=== PATIENT | male | born 1930 | race Hispanic/Latino ===

== ENCOUNTER 2017-11-01 03:15 | Inpatient (IN) | payer MEDICARE, MEDICAID ==
[2017-11-01 04:01] LABS: PTT 31.6 SEC (22.9-36.1); Prothrombin Time 15.9 SEC (12.0-14.7)
[2017-11-01 04:07] LABS: Lactic Acid - Sepsis 2.2 mmol/L (0.5-2.2)
[2017-11-01 04:15] LABS: ALT (SGPT) 17 U/L (8-55); AST (SGOT) 21 U/L (5-34); Alkaline Phosphatase 64 U/L (40-150); Anion Gap 12 mmol/L (10-20); BUN (Urea Nitrogen) 19 mg/dL (8.4-25.7); Bilirubin, Total 0.5 mg/dL (0.2-1.2); CK (CPK) 149 U/L (30-200); Calc. Creatinine Clearance 0 mL/min (70-130); Calcium 8.5 mg/dL (7.8-10.44); Carbon Dioxide 28 mmol/L (23-31); Chloride 101 mmol/L (98-107); Estimated GFR-MDRD 78; Globulin 2.9 g/dL (2.4-3.5); Lipase 10 U/L (8-78); Protein, Total 7.1 g/dL (5.8-8.1)
[2017-11-01 04:16] LABS: Troponin I Less than 0.010 ng/mL (< 0.028)
[2017-11-01 04:20] LABS: Band 18 % (5-11); Hematocrit 42.6 % (42.0-52.0); Mean Platelet Volume 9.7 fL (7.4-10.4); Metamyelocyte 1 % (0-0); Neutrophil 71 % (42-75); Red Blood Cell (RBC) Count 4.96 mill/uL (4.70-6.10); White Blood Cell (WBC) Count 20.4 thou/uL (4.8-10.8)
[2017-11-01] MEDS ORDERED: Oseltamivir 75 MG CAP PO SCH (04:30)
[2017-11-01] MEDS ORDERED: HYDROcodone/Acetaminophen 5/325 mg Tablet PO PRN (07:13)
[2017-11-01] MEDS ORDERED: Loratadine 10 MG TAB PO PRN (07:13)
[2017-11-01] MEDS ORDERED: Benzonatate 100 MG CAP PO PRN (07:13)
[2017-11-01] MEDS ORDERED: Milk Of Magnesia 30 ML UDCUP PO PRN (07:13)
[2017-11-01] MEDS ORDERED: Ondansetron HCl/PF 4 MG/2 ML Vial IVP PRN (07:13)
[2017-11-01] MEDS ORDERED: Senokot 8.6 MG TAB PO PRN (07:13)
[2017-11-01] MEDS ORDERED: Ondansetron ODT 4 MG TAB PO PRN (07:13)
[2017-11-01] MEDS ORDERED: hydrALAZINE 20 MG/ML VIAL SLOW IVP PRN (07:13)
[2017-11-01] MEDS ORDERED: Eucerin (Mineral Oil/Petrolatum,White) 30 gm Jar TOP PRN (07:13)
[2017-11-01] MEDS ORDERED: Loperamide HCl 2 MG CAP PO PRN (07:13)
[2017-11-01] MEDS ORDERED: Acetaminophen 325 MG TAB PO PRN (07:13)
[2017-11-01] MEDS ORDERED: Sodium Chloride 0.65% Nasal 44 ML BOT EA NARE PRN (07:13)
[2017-11-01] MEDS ORDERED: Artificial Tears 18 DROP/0.9 ML EA EYE PRN (07:13)
[2017-11-01] MEDS ORDERED: Mag-Al 1200 mg/1200 mg/30 ML UDCUP PO PRN (07:13)
[2017-11-01] MEDS ORDERED: Chloraseptic Spray 180 ml Bottle PO PRN (07:13)
[2017-11-01] MEDS ORDERED: cefTRIAXone\\ROCEPHIN 2 GM in Sodium Chloride 0.9% 100 ML IVPB SCH (07:15)
--- NOTE | 2017-11-01 07:22 | RAD ---
CHEST 1 VIEW: Date: 11/01/17 HISTORY: Dyspnea. COMPARISON: 08/31/16. FINDINGS: Normal cardiac silhouette. Atherosclerosis of aorta. Pulmonary vessels are within normal limits. Ther e are increased interstitial opacities in lung bases, superimposed upon chronic change. Given diminis hed lung volumes, bibasilar atelectasis is favored. Infiltrate cannot be completely excluded. No sign ificant pleural effusion. No pneumothorax. IMPRESSION: Interstitial opacities in lung bases as detailed above. Atelectasis is favored. Infiltrate cannot be excluded. POS: PPP
[2017-11-01] MEDS ORDERED: Enoxaparin Sodium 40 MG/0.4 ML SYRINGE SC SCH (09:00)
[2017-11-01] MEDS ORDERED: Famotidine 20 MG TAB ONE (12:00)
[2017-11-01 13:30] LABS: Bilirubin Negative (Negative); Blood, Urine Negative (Negative); Glucose, Urine (Dipstick) Negative (Negative); Ketone, Urine Negative (Negative); Nitrite Negative (Negative); Protein, Urine (Dipstick) 30 mg/dL (Neg-Trace); Urobilinogen 0.2 mg/dL (0.2-1.0)
[2017-11-01 13:32] LABS: Bacteria/HPF None Seen HPF (None Seen); Hyaline Casts/LPF 0-3 HYALINE CAST LPF (0-3 Hyaline); RBC/HPF 0-3 HPF (0-3); Squamous Epithelial 0-3 HPF (0-3); WBC/HPF 0-3 HPF (0-3)
--- NOTE | 2017-11-01 13:42 | HP ---
PRIMARY CARE PHYSICIAN: Adrianna Bah M.D. CHIEF COMPLAINT: Acute hypoxic respiratory failure influenza A, sepsis with acute organ dysfunction. HISTORY OF PRESENT ILLNESS: An 87-year-old male who is Bangladeshi speaking only, so he is not able to provide a good history, but patient's family member present at bedside who provided most of the history. Patient is sick for the last 2 days. His symptoms started with upper respiratory infection. Initially, runny nose and sore throat, and he was having headache, body ache and generalized weakness. He started having cough with sputum. He was becoming more and more weak and his condition deteriorated last night and that is why family member brought him to the emergency room. When he came to the emergency room, his oxygen saturation was 84% on room air and he was febrile with temperature 100.4. He was tachypneic and relatively hypotensive. Patient was having cough and sore throat. He did not have any recent travel. He did not have any syncope, but he was having cough and associated pleuritic chest pain. Patient denies any UTI symptoms. He denies any nausea, vomiting, or diarrhea. He denies any constipation, diarrhea, melena, hematochezia. REVIEW OF SYSTEMS: The following complete review of systems was negative, unless otherwise mentioned in the HPI or below: Constitutional: Weight loss or gain, ability to conduct usual activities. Skin: Rash, itching. Eyes: Double vision, pain. ENT/Mouth: Nose bleeding, neck stiffness, pain, tenderness. Cardiovascular: Palpitations, dyspnea on exertion, orthopnea. Respiratory: Shortness of breath, wheezing, cough, hemoptysis, fever or night sweats. Gastrointestinal: Poor appetite, abdominal pain, heartburn, nausea, vomiting, constipation, or diarrhea. Genitourinary: Urgency, frequency, dysuria, nocturia. Musculoskeletal: Pain, swelling. Neurologic/Psychiatric: Anxiety, depression. Allergy/Immunologic: Skin rash, bleeding tendency. Please see my HPI for pertinent positives and negatives. All other review of systems reviewed and negative except as mentioned in the HPI. CURRENT HOME MEDICATIONS: Lasix 20 mg twice daily, terazosin 2 mg p.o. at bedtime, Lyrica 50 mg 3 times daily, and amlodipine 10 mg p.o. daily. PAST MEDICAL HISTORY: Osteoarthritis, chronic low back pain, hypertension, benign enlargement of prostate. PAST SURGICAL HISTORY: Back surgery. ALLERGIES: No known drug allergies. FAMILY HISTORY: Hypertension runs among several family members. SOCIAL HISTORY: Patient lives in [facility] area with the family. No history of tobacco, alcohol or illicit drug abuse. Patient is able to ambulate with a cane and he is able to do all his routine activity. PAST PSYCHIATRIC HISTORY: Reviewed and negative. EMERGENCY ROOM COURSE: Patient is given Tamiflu 30 mg, Pepcid 20 mg, Rocephin 2 grams, IV fluid 2 liters and Levaquin 750 mg. PHYSICAL EXAMINATION: VITAL SIGNS: On arrival, blood pressure 104/51, pulse 67, respiratory rate 18, temperature 100.4, saturation 84% on room air, weight 63.5 kilograms. GENERAL: Patient is currently alert, awake, appears weak. No obvious acute distress. HEAD: Normocephalic, atraumatic. EYES: Pupils round, reactive to light. Extraocular muscles intact. ENT: Oropharynx within normal limits. Moist mucous membranes. No oral lesions. No pharyngeal erythema, no exudate. NECK: Supple, no JVD, no thyromegaly, no carotid bruit. ENT: Oropharynx within normal limits. Pharyngeal erythema noted. No exudate. CARDIOVASCULAR: S1, S2 regular. No murmur, no gallop, no rub. LUNGS: Bilateral wheezing heard. Rales present at left lower lobe. ABDOMEN: Soft, bowel sounds present, nontender, nondistended. No organomegaly , no mass, no suprapubic tenderness. BACK: Examination unremarkable, no CVA tenderness. EXTREMITIES: Upper extremity passive movements of all joints are normal. Lower extremities: No edema. Good peripheral pulsation. SKIN: No skin rash. HEMATOLOGICAL SYSTEM: No lymphadenopathy. PSYCHIATRIC: Normal affect. NEUROLOGIC: Nonfocal examination. The patient moves all 4 limbs. Plantar bilateral flexor. IMAGING AND SIGNIFICANT LABORATORY DATA: 1. EKG based on my review reveals normal sinus rhythm, normal EKG without any ischemic changes. 2. Chest x-ray based on my review, interstitial opacity at lung base. 3. CBC: WBC 20.4, hemoglobin 14.3, platelets 79 with bandemia. INR 1.2. 4. BMP: Sodium 134, potassium 3.4, chloride 101, carbon dioxide 28, BUN 19, creatinine 0.92, glucose 113, calcium 8.5. 5. LFT: AST 21, ALT 17, alkaline phosphatase 64, albumin 4.2, CK 149, CK-MB 1.24, troponin I less than 0.010, BNP 121.6, lactic acid 2.2, lipase 10. ASSESSMENT AND PLAN/IMPRESSION: 1. Sepsis with acute organ dysfunction. This patient has leukocytosis with bandemia, fever as well as hypoxic respiratory failure. Source of infection is a flu related pneumonia/bronchitis. 2. Hypokalemia. Patient will be given IV fluid with potassium and we will repeat BMP tomorrow. 3. Thrombocytopenia. Because of low platelet count, we will avoid deep venous thrombosis prophylaxis with heparin product. 4. Influenza day. Patient has influenza A positive and we will treat with Tamiflu as per renally adjusted dose. 5. Bibasilar pneumonia with hypoxia. Patient will be given Rocephin 2 gram IV daily, Levaquin 750 mg IV daily along with Mucinex 600 mg twice daily, doxycycline 100 mg twice daily, DuoNeb q.6 hourly and Solu-Medrol 40 mg IV q.6 hourly. 6. Benign enlargement of prostate. We will continue terazosin 2 mg p.o. at bedtime. 7. Peripheral neuropathy. We will continue Lyrica 50 mg twice daily. 8. Hypertension. Currently, blood pressure is running low, so we will hold on antihypertensive medication. 9. Deep venous thrombosis prophylaxis, sequential compression device boots. No Lovenox because of low platelet count. 10. Gastrointestinal prophylaxis, Pepcid 20 mg p.o. b.i.d. 11. Code status: The patient is FULL CODE. Patient does not have any obvious surrogate decision maker. Disposition plan based on clinical course. We are expecting patient's stay in hospital more than 2 midnights. Plan of care discussed with the patient and family member at bedside in the emergency room. LYNNED
[2017-11-01 14:49] VITALS: BMI 30.7
[2017-11-01] MEDS: cefTRIAXone\\ROCEPHIN 2 GM in Sodium Chloride 0.9% 100 ML IVPB SCH (14:53)
[2017-11-01] MEDS: Famotidine 20 MG TAB PO SCH ×2 (14:53→21:53)
[2017-11-01] MEDS: guaiFENesin ER 600 MG TAB PO SCH ×2 (14:55→21:55)
[2017-11-01] MEDS: Diabetic Tussin 200 MG/10 ML UDCUP PO PRN (15:42)
[2017-11-01] MEDS: NS 0.9% w/ 20 MEQ KCL 1,000 ML/1,000 ML BAG IV SCH (17:57)
[2017-11-01] MEDS: Oseltamivir 6 MG/ML ORAL SUSP PO SCH (21:51)
[2017-11-01] MEDS: Pregabalin 50 MG CAP PO SCH (21:51)
[2017-11-01] MEDS: Terazosin HCl 1 MG CAP PO SCH (21:53)
[2017-11-01] MEDS: Doxycycline 100 MG CAP PO SCH (21:57)
[2017-11-02 06:37] LABS: #Lymphocytes 0.4 thou/uL (1.20-3.40); #Monocytes 0.3 thou/uL (0.11-0.59); #Neutrophils 14.9 thou/uL (1.40-6.50); %Eosinophils 0.1 % (0.0-10.0); %Lymphocytes 2.8 % (21.0-51.0); %Monocytes 1.8 % (0.0-10.0); Hematocrit 39.7 % (42.0-52.0); Mean Platelet Volume 10.1 fL (7.4-10.4); Red Blood Cell (RBC) Count 4.58 mill/uL (4.70-6.10); White Blood Cell (WBC) Count 15.6 thou/uL (4.8-10.8)
[2017-11-02 06:59] LABS: ALT (SGPT) 14 U/L (8-55); AST (SGOT) 23 U/L (5-34); Alkaline Phosphatase 50 U/L (40-150); Anion Gap 13 mmol/L (10-20); BUN (Urea Nitrogen) 12 mg/dL (8.4-25.7); Bilirubin, Total 0.3 mg/dL (0.2-1.2); Calc. Creatinine Clearance 67 mL/min (70-130); Carbon Dioxide 25 mmol/L (23-31); Chloride 105 mmol/L (98-107); Estimated GFR-MDRD Greater than 90; Globulin 2.7 g/dL (2.4-3.5); Protein, Total 6.3 g/dL (5.8-8.1)
[2017-11-02] MEDS: Pregabalin 50 MG CAP PO SCH ×2 (09:15→20:55)
[2017-11-02] MEDS: guaiFENesin ER 600 MG TAB PO SCH ×2 (09:15→20:55)
[2017-11-02] MEDS: Famotidine 20 MG TAB PO SCH ×2 (09:15→20:56)
[2017-11-02] MEDS: Oseltamivir 6 MG/ML ORAL SUSP PO SCH ×2 (09:16→20:55)
[2017-11-02] MEDS: Doxycycline 100 MG CAP PO SCH ×2 (09:16→20:55)
[2017-11-02] MEDS: cefTRIAXone\\ROCEPHIN 2 GM in Sodium Chloride 0.9% 100 ML IVPB SCH (09:16)
[2017-11-02] MEDS: NS 0.9% w/ 20 MEQ KCL 1,000 ML/1,000 ML BAG IV SCH ×2 (10:00→16:54)
--- NOTE | 2017-11-02 12:26 | PDOC.PN ---
- Subjective Encounter Start Date: 11/02/17 Encounter Start Time: 09:50 -: old records requested/rev pt has sore throat, feels weak, has cough, no fever, feels better than yesterday - Objective Resuscitation Status: Resuscitation Status FULL:Full Resuscitation MAR Reviewed: Yes Vital Signs & Weight: Vital Signs (12 hours) Temp Pulse Resp BP Pulse Ox 11/02/17 11:46 98 F 83 20 117/53 L 91 L 11/02/17 09:26 92 L 11/02/17 09:20 89 L 11/02/17 08:30 101 H 127/62 11/02/17 08:00 97.6 F 101 H 18 88/57 L 92 L 11/02/17 06:08 74 20 93 L 11/02/17 04:20 99 F 73 20 112/66 93 L 11/02/17 00:55 99.4 F 100 16 106/59 L 92 L Weight Weight 153 lb 11.2 oz I&O: 11/01/17 11/02/17 11/03/17 06:59 06:59 06:59 Intake Total 240 Output Total 400 Balance -160 Result Diagrams: 11/02/17 06:13 11/02/17 06:13 EKG Reviewed by me: Yes (nsr) Phys Exam - Physical Examination Constitutional: NAD HEENT: PERRLA, moist MMs, sclera anicteric Neck: no JVD, supple Respiratory: no wheezing, no rales, no rhonchi basilar reduced air entry Cardiovascular: RRR, no significant murmur, no rub Gastrointestinal: soft, non-tender, no distention, positive bowel sounds Musculoskeletal: no edema, pulses present Neurological: non-focal, normal sensation, moves all 4 limbs Lymphatic: no nodes Psychiatric: normal affect, A&O x 3 Skin: no rash, normal turgor Dx/Plan (1) Acute respiratory failure with hypoxia Code(s): J96.01 - ACUTE RESPIRATORY FAILURE WITH HYPOXIA Status: Acute (2) Community acquired bacterial pneumonia Code(s): J15.9 - UNSPECIFIED BACTERIAL PNEUMONIA Status: Acute (3) Hypokalemia Code(s): E87.6 - HYPOKALEMIA Status: Acute (4) Influenza A Code(s): J10.1 - FLU DUE TO OTH IDENT INFLUENZA VIRUS W OTH RESP MANIFEST Status: Acute (5) Sepsis with acute organ dysfunction Code(s): A41.9 - SEPSIS, UNSPECIFIED ORGANISM; R65.20 - SEVERE SEPSIS WITHOUT SEPTIC SHOCK Status: Acute (6) Thrombocytopenia Code(s): D69.6 - THROMBOCYTOPENIA, UNSPECIFIED Status: Acute (7) BPH (benign prostatic hyperplasia) Code(s): N40.0 - BENIGN PROSTATIC HYPERPLASIA WITHOUT LOWER URINRY TRACT SYMP Status: Chronic (8) HTN (hypertension) Code(s): I10 - ESSENTIAL (PRIMARY) HYPERTENSION Status: Chronic (9) Obesity (BMI 30.0-34.9) Code(s): E66.9 - OBESITY, UNSPECIFIED Status: Chronic - Plan cont current plan of care, plan discussed w/ family, continue antibiotics, respiratory therapy, DVT proph w/SCDs * continue tamiflu * continue rocephin, levaquin and doxycycline * reduce solumedrol * Dc tele * transfer to medical * will wean off oxygen as tolerated * follow culture * medication reviewed as below * symptomatic treatment * discussed with family. Review of Systems - Review of Systems Constitutional: weakness. negative: fever, chills, sweats, malaise, other ENT: Throat Pain. negative: Ear Pain, Ear Discharge, Nose Pain, Nose Discharge , Nose Congestion, Mouth Pain, Mouth Swelling, Throat Swelling, Other Respiratory: Cough, Shortness of Breath Cardiovascular: negative: chest pain, palpitations, orthopnea, paroxysmal nocturnal dyspnea, edema, light headedness, other Gastrointestinal: negative: Nausea, Vomiting, Abdominal Pain, Diarrhea, Constipation, Melena, Hematochezia, Other Genitourinary: negative: Dysuria, Frequency, Incontinence, Hematuria, Retention , Other Musculoskeletal: negative: Neck Pain, Shoulder Pain, Arm Pain, Back Pain, Hand Pain, Leg Pain, Foot Pain, Other Skin: negative: Rash, Lesions, [place], Bruising, Other - Medications/Allergies Allergies/Adverse Reactions: Allergies Allergy/AdvReac Type Severity Reaction Status Date / Time No Known Allergies Allergy Verified 10/03/15 14:26 Medications: Current Medications Acetaminophen (Tylenol) 650 mg PO Q4H PRN PRN Reason: Headache/Fever or Pain Hydrocodone Bitart/Acetaminophen ([place] 5/325) 1 tab PO Q4H PRN PRN Reason: Moderate Pain (4-6) Al Hydroxide/Mg Hydroxide (Maalox) 30 ml PO Q6H PRN PRN Reason: Heartburn or Indigestion Albuterol/Ipratropium (Duoneb) 3 ml NEB [id number] [facility] Last Admin: 11/02/17 06:08 Dose: 3 ml Albuterol/Ipratropium (Duoneb) 3 ml NEB [id number] PRN PRN Reason: SOB &/or Wheezing Artificial Tears (Tears Naturale) 0 drop EA EYE PRN PRN PRN Reason: Dry Eyes Benzonatate (Tessalon) 100 mg PO Q4H PRN PRN Reason: Cough Doxycycline Hyclate (Vibramycin) 100 mg PO BID [facility] Last Admin: 11/02/17 09:16 Dose: 100 mg Famotidine (Pepcid) 20 mg PO BID [facility] Last Admin: 11/02/17 09:15 Dose: 20 mg Guaifenesin (Robitussin Sf) 200 mg PO Q4H PRN PRN Reason: Cough Last Admin: 11/01/17 15:42 Dose: 200 mg Guaifenesin (Mucinex) 600 mg PO Q12HR [facility] Last Admin: 11/02/17 09:15 Dose: 600 mg Hydralazine HCl (Apresoline) 10 mg SLOW IVP Q4H PRN PRN Reason: Systolic BP > 180 Levofloxacin 750 mg/ Device 150 mls @ 100 mls/hr IVPB 0400 [facility] Last Admin: 11/02/17 04:49 Dose: 150 mls Ceftriaxone Sodium 2 gm/ (Sodium Chloride) 100 mls @ 200 mls/hr IVPB 0800 [facility] Last Admin: 11/02/17 09:16 Dose: 100 mls Potassium Chloride/Sodium Chloride (Ns 0.9% W/ 20 Meq Kcl) 1,000 ml in 1,000 mls @ 75 mls/hr IV .[id number] [facility] Last Admin: 11/02/17 10:00 Dose: 1,000 mls Loperamide HCl (Imodium) 2 mg PO PRN PRN PRN Reason: Diarrhea/Loose Stools Loratadine (Claritin) 10 mg PO DAILYPRN PRN PRN Reason: Sinus Symptoms Magnesium Hydroxide (Milk Of Magnesium) 30 ml PO DAILYPRN PRN PRN Reason: Constipation Methylprednisolone Sodium Succinate (Solu-Medrol) 20 mg IVP Q6HR [facility] Last Admin: 11/02/17 11:51 Dose: 20 mg Mineral Oil/White Petrolatum (Eucerin Cream) 0 gm TOP BIDPRN PRN PRN Reason: Dry Skin Ondansetron HCl (Zofran Odt) 4 mg PO Q6H PRN PRN Reason: Nausea/Vomiting Ondansetron HCl (Zofran) 4 mg IVP Q6H PRN PRN Reason: Nausea/Vomiting Oseltamivir Phosphate (Tamiflu) 30 mg PO BID [facility] Stop: 11/06/17 09:01 Last Admin: 11/02/17 09:16 Dose: 30 mg Phenol (Chloraseptic [place] 180 Ml Bot) 0 ml PO PRN PRN PRN Reason: Sore Throat Pregabalin (Lyrica) 50 mg PO BID [facility] Last Admin: 11/02/17 09:15 Dose: 50 mg Senna (Senokot) 2 tab PO HSPRN PRN PRN Reason: Constipation Sodium Chloride ([place] Nasal [place] 0.65%) 0 ml EA NARE QIDPRN PRN PRN Reason: Nasal Congestion Sodium Chloride (Flush - Normal Saline) 10 ml IVF Q12HR [facility] Last Admin: 11/02/17 09:17 Dose: 10 ml Sodium Chloride (Flush - Normal Saline) 10 ml IVF PRN PRN PRN Reason: Saline Flush Terazosin HCl (Hytrin) 2 mg PO HS [facility] Last Admin: 11/01/17 21:53 Dose: 2 mg
[2017-11-02] MEDS: Terazosin HCl 1 MG CAP PO SCH (20:56)
[2017-11-03] MEDS: NS 0.9% w/ 20 MEQ KCL 1,000 ML/1,000 ML BAG IV SCH ×2 (00:24→16:36)
[2017-11-03] MEDS: Doxycycline 100 MG CAP PO SCH ×2 (08:50→20:18)
[2017-11-03] MEDS: Famotidine 20 MG TAB PO SCH ×2 (08:51→20:18)
[2017-11-03] MEDS: guaiFENesin ER 600 MG TAB PO SCH ×2 (08:51→20:18)
[2017-11-03] MEDS: Oseltamivir 6 MG/ML ORAL SUSP PO SCH ×2 (08:51→20:19)
[2017-11-03] MEDS: Pregabalin 50 MG CAP PO SCH ×2 (08:51→20:18)
[2017-11-03] MEDS: cefTRIAXone\\ROCEPHIN 2 GM in Sodium Chloride 0.9% 100 ML IVPB SCH (09:47)
--- NOTE | 2017-11-03 11:59 | PDOC.PN ---
- Subjective Encounter Start Date: 11/03/17 Encounter Start Time: 09:30 pt has cough, pt is still hypoxic and needs oxygen, no fever - Objective Resuscitation Status: Resuscitation Status FULL:Full Resuscitation MAR Reviewed: Yes Vital Signs & Weight: Vital Signs (12 hours) Temp Pulse Resp BP BP Pulse Ox 11/03/17 11:52 81 18 93 L 11/03/17 08:50 98.0 F 77 20 91 L 11/03/17 08:24 98.0 F 77 20 141/72 H 89 L 11/03/17 06:45 85 18 96 11/03/17 04:00 98.1 F 73 20 138/71 93 L 11/03/17 01:50 75 18 96 11/03/17 00:00 98.0 F 73 20 126/66 94 L Weight Weight 153 lb 11.2 oz I&O: 11/02/17 11/03/17 11/04/17 06:59 06:59 06:59 Intake Total 2364 Output Total 400 Balance 1964 Result Diagrams: 11/02/17 06:13 11/02/17 06:13 Phys Exam - Physical Examination Constitutional: NAD HEENT: PERRLA, moist MMs, sclera anicteric Neck: no JVD, supple Respiratory: no wheezing, no rales, no rhonchi Cardiovascular: RRR, no significant murmur, no rub Gastrointestinal: soft, non-tender, no distention, positive bowel sounds Musculoskeletal: no edema, pulses present Neurological: non-focal, normal sensation, moves all 4 limbs Lymphatic: no nodes Psychiatric: normal affect, A&O x 3 Skin: no rash, normal turgor Dx/Plan (1) Acute respiratory failure with hypoxia Code(s): J96.01 - ACUTE RESPIRATORY FAILURE WITH HYPOXIA Status: Acute (2) Community acquired bacterial pneumonia Code(s): J15.9 - UNSPECIFIED BACTERIAL PNEUMONIA Status: Acute (3) Hypokalemia Code(s): E87.6 - HYPOKALEMIA Status: Acute (4) Influenza A Code(s): J10.1 - FLU DUE TO OTH IDENT INFLUENZA VIRUS W OTH RESP MANIFEST Status: Acute (5) Sepsis with acute organ dysfunction Code(s): A41.9 - SEPSIS, UNSPECIFIED ORGANISM; R65.20 - SEVERE SEPSIS WITHOUT SEPTIC SHOCK Status: Acute (6) Thrombocytopenia Code(s): D69.6 - THROMBOCYTOPENIA, UNSPECIFIED Status: Acute (7) BPH (benign prostatic hyperplasia) Code(s): N40.0 - BENIGN PROSTATIC HYPERPLASIA WITHOUT LOWER URINRY TRACT SYMP Status: Chronic (8) HTN (hypertension) Code(s): I10 - ESSENTIAL (PRIMARY) HYPERTENSION Status: Chronic (9) Obesity (BMI 30.0-34.9) Code(s): E66.9 - OBESITY, UNSPECIFIED Status: Chronic - Plan cont current plan of care, plan discussed w/ family, continue antibiotics, respiratory therapy * today i spoke with patient and family with help of nurse who speaks italian and explained what is going on * when we walked around unit without oxygen, he became hypoxic and requiring oxygen * will continue to monitor his needs for oxygen * continue current IV antibiotics and tamilu * today he is not ready for discharge * will reevaluate tomorrow * medication reviewed as below * symptomatic treatment * discussed with family. Review of Systems - Review of Systems Constitutional: weakness. negative: fever, chills, sweats, malaise, other Eyes: negative: Pain, Vision Change, Conjunctivae Inflammation, Eyelid Inflammation, Redness, Other ENT: negative: Ear Pain, Ear Discharge, Nose Pain, Nose Discharge, Nose Congestion, Mouth Pain, Mouth Swelling, Throat Pain, Throat Swelling, Other Respiratory: Cough, Shortness of Breath. negative: Dry, Hemoptysis, SOB with Excertion, Pleuritic Pain, Sputum, Wheezing Cardiovascular: negative: chest pain, palpitations, orthopnea, paroxysmal nocturnal dyspnea, edema, light headedness, other Gastrointestinal: negative: Nausea, Vomiting, Abdominal Pain, Diarrhea, Constipation, Melena, Hematochezia, Other Genitourinary: negative: Dysuria, Frequency, Incontinence, Hematuria, Retention , Other Musculoskeletal: negative: Neck Pain, Shoulder Pain, Arm Pain, Back Pain, Hand Pain, Leg Pain, Foot Pain, Other Skin: negative: Rash, Lesions, [place], Bruising, Other - Medications/Allergies Allergies/Adverse Reactions: Allergies Allergy/AdvReac Type Severity Reaction Status Date / Time No Known Allergies Allergy Verified 10/03/15 14:26 Medications: Current Medications Acetaminophen (Tylenol) 650 mg PO Q4H PRN PRN Reason: Headache/Fever or Pain Hydrocodone Bitart/Acetaminophen ([place] 5/325) 1 tab PO Q4H PRN PRN Reason: Moderate Pain (4-6) Al Hydroxide/Mg Hydroxide (Maalox) 30 ml PO Q6H PRN PRN Reason: Heartburn or Indigestion Albuterol/Ipratropium (Duoneb) 3 ml NEB [id number] [facility] Last Admin: 11/03/17 11:52 Dose: 3 ml Albuterol/Ipratropium (Duoneb) 3 ml NEB [id number] PRN PRN Reason: SOB &/or Wheezing Artificial Tears (Tears Naturale) 0 drop EA EYE PRN PRN PRN Reason: Dry Eyes Benzonatate (Tessalon) 100 mg PO Q4H PRN PRN Reason: Cough Doxycycline Hyclate (Vibramycin) 100 mg PO BID [facility] Last Admin: 11/03/17 08:50 Dose: 100 mg Famotidine (Pepcid) 20 mg PO BID [facility] Last Admin: 11/03/17 08:51 Dose: 20 mg Guaifenesin (Robitussin Sf) 200 mg PO Q4H PRN PRN Reason: Cough Last Admin: 11/01/17 15:42 Dose: 200 mg Guaifenesin (Mucinex) 600 mg PO Q12HR [facility] Last Admin: 11/03/17 08:51 Dose: 600 mg Hydralazine HCl (Apresoline) 10 mg SLOW IVP Q4H PRN PRN Reason: Systolic BP > 180 Levofloxacin 750 mg/ Device 150 mls @ 100 mls/hr IVPB 0400 [facility] Last Admin: 11/03/17 04:21 Dose: 150 mls Ceftriaxone Sodium 2 gm/ (Sodium Chloride) 100 mls @ 200 mls/hr IVPB 0800 [facility] Last Admin: 11/03/17 09:47 Dose: 100 mls Potassium Chloride/Sodium Chloride (Ns 0.9% W/ 20 Meq Kcl) 1,000 ml in 1,000 mls @ 75 mls/hr IV .[id number] [facility] Last Admin: 11/03/17 00:24 Dose: 1,000 mls Loperamide HCl (Imodium) 2 mg PO PRN PRN PRN Reason: Diarrhea/Loose Stools Loratadine (Claritin) 10 mg PO DAILYPRN PRN PRN Reason: Sinus Symptoms Magnesium Hydroxide (Milk Of Magnesium) 30 ml PO DAILYPRN PRN PRN Reason: Constipation Methylprednisolone Sodium Succinate (Solu-Medrol) 20 mg IVP Q6HR [facility] Last Admin: 11/03/17 11:37 Dose: 20 mg Mineral Oil/White Petrolatum (Eucerin Cream) 0 gm TOP BIDPRN PRN PRN Reason: Dry Skin Ondansetron HCl (Zofran Odt) 4 mg PO Q6H PRN PRN Reason: Nausea/Vomiting Ondansetron HCl (Zofran) 4 mg IVP Q6H PRN PRN Reason: Nausea/Vomiting Oseltamivir Phosphate (Tamiflu) 30 mg PO BID [facility] Stop: 11/06/17 09:01 Last Admin: 11/03/17 08:51 Dose: 30 mg Phenol (Chloraseptic [place] 180 Ml Bot) 0 ml PO PRN PRN PRN Reason: Sore Throat Pregabalin (Lyrica) 50 mg PO BID [facility] Last Admin: 11/03/17 08:51 Dose: 50 mg Senna (Senokot) 2 tab PO HSPRN PRN PRN Reason: Constipation Sodium Chloride ([place] Nasal [place] 0.65%) 0 ml EA NARE QIDPRN PRN PRN Reason: Nasal Congestion Sodium Chloride (Flush - Normal Saline) 10 ml IVF Q12HR [facility] Last Admin: 11/03/17 08:51 Dose: 10 ml Sodium Chloride (Flush - Normal Saline) 10 ml IVF PRN PRN PRN Reason: Saline Flush Last Admin: 11/03/17 05:53 Dose: 10 ml Terazosin HCl (Hytrin) 2 mg PO HS [facility] Last Admin: 11/02/17 20:56 Dose: 2 mg
[2017-11-03] MEDS: Terazosin HCl 1 MG CAP PO SCH (20:18)
[2017-11-04] MEDS: Diabetic Tussin 200 MG/10 ML UDCUP PO PRN (04:03)
[2017-11-04] MEDS: NS 0.9% w/ 20 MEQ KCL 1,000 ML/1,000 ML BAG IV SCH (05:29)
[2017-11-04] MEDS: Doxycycline 100 MG CAP PO SCH (08:26)
[2017-11-04] MEDS: guaiFENesin ER 600 MG TAB PO SCH (08:27)
[2017-11-04] MEDS: Pregabalin 50 MG CAP PO SCH (08:27)
[2017-11-04] MEDS: Famotidine 20 MG TAB PO SCH (08:27)
[2017-11-04] MEDS: cefTRIAXone\\ROCEPHIN 2 GM in Sodium Chloride 0.9% 100 ML IVPB SCH (09:14)
[2017-11-04] MEDS: Oseltamivir 6 MG/ML ORAL SUSP PO SCH (10:09)
--- NOTE | 2017-11-04 10:21 | DIS ---
DATE OF ADMISSION: 11/01/2017 DATE OF DISCHARGE: 11/04/2017 PRIMARY CARE PHYSICIAN: Adrianna Bah M.D. DISCHARGE DISPOSITION: Home. PRIMARY DISCHARGE DIAGNOSES: 1. Acute respiratory failure with hypoxia, resolved. 2. Community-acquired bacterial pneumonia. 3. Influenza A. 4. Hypokalemia. 5. Sepsis with acute organ dysfunction. 6. Thrombocytopenia due to sepsis. SECONDARY DISCHARGE DIAGNOSES: Benign enlargement of prostate, hypertension, obesity with BMI 30. PRIMARY PROCEDURE/OPERATION: None. RADIOLOGICAL INVESTIGATION: Chest x-ray on admission showed bibasilar infiltration. SIGNIFICANT LABORATORY DATA: WBC 15.6, hemoglobin 12.7, platelets 71. INR 1.2. BMP: Sodium 139, potassium 4.0, BUN 20, creatinine 0.75, glucose 200, calcium 8.0. LFTs normal. BNP 121.6. Urinalysis normal. Blood culture negative. Influenza A positive. DISCHARGE MEDICATIONS: Amlodipine 5 mg p.o. b.i.d., Tessalon 100 mg q.4 hourly p.r.n., doxycycline 100 mg twice daily for 7 days, Pepcid 20 mg p.o. b.i.d., Lasix 20 mg p.o. daily, Mucinex 600 mg p.o. b.i.d. for 7 days, ibuprofen 800 mg p.o. t.i.d. p.r.n., Levaquin 500 mg p.o. daily for 7 days, Tamiflu 75 mg p.o. daily for three days, prednisone 20 mg p.o. daily for 7 days, Lyrica 50 mg p.o. b.i.d., terazosin 2 mg p.o. at bedtime. CONTRAINDICATIONS: None. CODE STATUS: FULL CODE. INPATIENT CONSULTANTS: None. ALLERGIES: No known drug allergies. DISCHARGE PLAN: Post hospital, the patient will follow up with primary care physician in 1 week. HOSPITAL COURSE: An 87-year-old male with the above-mentioned medical problem, who was admitted by me on 11/01/2017. Please see my HPI for further details. This patient was having upper and lower respiratory symptoms. He was hypoxic. He was having fever and cough. He had chest x-ray, which showed bibasilar infiltration. He was afebrile in the emergency room and hypoxic. He was having sepsis with acute organ dysfunction. He required admission initially on telemetry floor, and subsequently, we transferred him to medical floor. He had steroid-induced hyperglycemia. We were initially giving him doxycycline, Rocephin, Levaquin, and Solu-Medrol as well as symptomatic treatment for flu. Upon stabilization, this patient was transferred to medical floor. Initially, he was requiring oxygen, but by the time of discharge, he was no longer requiring any oxygen. Patient was clinically feeling much better. On discharge , we are changing to the above-mentioned medication. The patient is going to finish complete course of antibiotic as well as Tamiflu for influenza A. The patient will resume his previous home medications. The patient is seen and examined at bedside today. All review of systems was reviewed with him and negative. PHYSICAL EXAMINATION: VITAL SIGNS: Currently, temperature 97.7, pulse 79, respiratory rate 18, saturation 90% on room air, blood pressure 139/54, weight 153 pounds. GENERAL: The patient is currently alert, awake, in no acute distress. HEAD: Normocephalic, atraumatic. EYES: Pupils round and reactive to light. Extraocular muscle intact. ENT: Oropharynx within normal limits. Moist mucous membranes. No oral lesions. No pharyngeal erythema, no exudate. NECK: Supple, no JVD, no thyromegaly, no carotid bruits. LUNGS: Clear to auscultation without any rhonchi or rales. CARDIAC: S1, S2 regular without any murmur. ABDOMEN: Soft and benign. EXTREMITIES: No edema. NEUROLOGIC: Nonfocal examination. Plan of care discussed with the patient's family member, patient is medically stable for discharge today. Total time spent on discharge day more than 30 minutes. MTDD
[2017-11-04 12:14] VITALS: BP 127/68; TEMP 97.9
--- NOTE | 2017-11-07 13:54 | EKG ---
Test Reason : Blood Pressure : / mmHG Vent. Rate : 081 BPM Atrial Rate : 081 BPM P-R Int : 128 ms QRS Dur : 090 ms QT Int : 346 ms P-R-T Axes : 031 -19 042 degrees QTc Int : 401 ms Normal sinus rhythm Normal ECG Confirmed by JAYY CANNON, FABIANO ([id number]), offline editor ANDRE VENEGAS ([id number]) on 11/07/2017 1:52:44 PM Referred By: Confirmed By:FABIANO HOPE MD
== END 2017-11-04 12:35 | disposition home or self-care (01) | DRG 871 ==
LOC: ERS 03:15 → ERHOLD 04:45 → 2SE 14:09 → T4-B 11-02 15:01
PROVIDERS: ADMIT Internal Medicine Addiction Medicine; ATTEND Internal Medicine Addiction Medicine
DX: A41.9 Sepsis, unspecified organism (principal); J96.01 Acute respiratory failure with hypoxia; J09.X1 Influenza due to identified novel influenza A virus with pneumonia; J15.9 Unspecified bacterial pneumonia; D69.6 Thrombocytopenia, unspecified; G62.9 Polyneuropathy, unspecified; R65.20 Severe sepsis without septic shock; M19.90 Unspecified osteoarthritis, unspecified site; G89.29 Other chronic pain; M54.5 Low back pain; I10 Essential (primary) hypertension; N40.0 Benign prostatic hyperplasia without lower urinary tract symptoms; E87.6 Hypokalemia; E66.9 Obesity, unspecified; Z68.30 Body mass index [BMI] 30.0-30.9, adult; R73.9 Hyperglycemia, unspecified; T38.0X5A Adverse effect of glucocorticoids and synthetic analogues, initial encounter
CPT/HCPCS: 36415; 71010; 80053; 81003; 81015; 82553; 83605; 83690; 83880; 84484; 85025; 85610; 85730; 87040; 93005; 94640; 96361; 96365; 96367; A4216; J0696; J1956; J2920; J7050; J7620; Q0162

== ENCOUNTER 2018-01-09 12:30 | Outpatient (CLI) | payer MEDICARE, MEDICAID | END 2018-01-09 12:31 | disposition home or self-care (01) | LOC: BICRAD 12:30 | PROVIDERS: ATTEND Family Medicine | DX: M25.512 Pain in left shoulder (principal); M19.012 Primary osteoarthritis, left shoulder ==

== ENCOUNTER 2018-05-26 06:57 | Outpatient (CLI) | payer MEDICARE, MEDICAID | END 2018-05-26 06:58 | disposition home or self-care (01) | LOC: BICULT 06:57 | PROVIDERS: ATTEND Internal Medicine Medical Oncology | DX: Z03.89 Encounter for observation for other suspected diseases and conditions ruled out (principal); D69.6 Thrombocytopenia, unspecified | CPT/HCPCS: 76705 ==

== ENCOUNTER 2018-06-20 11:18 | Outpatient (CLI) | payer MEDICARE, OTHER | END 2018-06-20 11:19 | disposition home or self-care (01) | LOC: BICRAD 11:18 | PROVIDERS: ATTEND Family Medicine | DX: R07.89 Other chest pain (principal); W19.XXXA Unspecified fall, initial encounter | CPT/HCPCS: 71046 ==